=== PATIENT | female | born 1965 | race Caucasian/White ===

== ENCOUNTER 2021-01-12 09:13 | Emergency (ER) | payer BC, SELFPAY ==
[2021-01-12 09:22] VITALS: BP 113/74; PULSE 87; RESP 16; TEMP 36.9; O2SAT 99
--- NOTE | 2021-01-12 09:44 | ED.URI ---
HPI - URI/Sore Throat General Chief Complaint: Upper Respiratory Infection Stated Complaint: Sore Throat, Coughing Time Seen by Provider: 01/12/21 09:46 Source: patient Mode of arrival: ambulatory Limitations: no limitations History of Present Illness HPI Narrative: Char Pimentel is a 55 yo female with a PMH of high cholesterol, urinary retention, who comes here with c/o sore throat, subjective fever x 2 days. Also c/o back pain, no painful urination, she also states that her ears are painful for the last 2 to 3 days Related Data Allergies Allergy/AdvReac Type Severity Reaction Status Date / Time Penicillins Allergy Unknown A CHILD Verified 10/07/12 10:33 Review of Systems Review of Systems: Narrative: CONSTITUTIONAL: Subjective fever, chills, sweats. EYES: Denies visual changes, redness, discharge. ENT: Denies rhinorrhea, congestion, has sore throat, right otalgia. CARDIOVASCULAR: Denies chest pain, palpitations, edema. RESPIRATORY: Denies dyspnea, wheezing, cough GASTROINTESTINAL: Denies abdominal pain, nausea, vomiting, diarrhea. GENITOURINARY: Denies dysuria, hematuria, abnormal discharge SKIN: Denies rash or itching. NEUROLOGIC: Denies numbness, or focal weakness. PSYCHIATRIC: Denies anxiety or depression. [facility] Past Medical History Medical History (Updated 01/12/21 @ 10:06 by Soha Lehman CNP) High cholesterol Low testosterone Urinary retention Family History Family History (Updated 01/12/21 @ 10:00 by Soha Lehman CNP) Other Heart disease Hypertension Social History Social History (Updated 01/12/21 @ 09:59 by Shoa Lehman CNP) Smoking status: Never smoker Alcohol intake: current Alcohol use details: daily drinker Gender identity (if verbalized by the patient): Female Comments At time of signature, I agree with nursing past medical, surgical, social and family history. There is no relevant family history pertinent to the presenting complaint. Exam Narrative: Exam Narrative: GENERAL: This is a well-nourished, well-developed patient, in mild distress. HEAD: normocephalic, atraumatic. EYES: Sclera clear/white. Vision is grossly intact. EARS: External ears normal, auditory canals right is erythematous and without drainage, TMs normal without perforation. Hearing grossly intact. NOSE: External nose normal without nasal discharge, nares without redness, no rhinorrhea. THROAT: Mucous membranes moist, posterior pharynx with a little erythema NECK: Neck supple, non-tender CARDIOVASCULAR: Regular rate and rhythm without murmurs, gallops, or rubs. RESPIRATORY: Clear to auscultation. Breath sounds equal bilaterally. No wheezes, rales, or rhonchi. GASTROINTESTINAL: Abdomen soft, non-tender, SKIN: warm, intact with no suspicious lesions or rash, good texture and turgor. NEURO: awake, alert, and oriented to person, place and time. There were no obvious focal neurologic abnormalities. Steady gait EXTREMITIES: Normal range of motion. BACK: Nontender without deformity Course Course Emergency Course: Patient comes in sore throat right ear pain and back pain denies urinary symptoms states his throat has been sore at 8 out of 10 and right ear pain x2 to 3 days Strep test negative Started on amoxicillin and encouraged to use Flonase in addition to her Zyrtec she already uses daily Vital Signs Vital signs: Vital Signs Temperature 98.4 F 01/12/21 09:22 Pulse Rate 87 01/12/21 09:22 Respiratory Rate 16 01/12/21 09:22 Blood Pressure 113/74 01/12/21 09:22 Pulse Oximetry 99 01/12/21 09:22 Temperature 98.4 F 01/12/21 09:22 Pulse Rate 87 01/12/21 09:22 Respiratory Rate 16 01/12/21 09:22 Blood Pressure 113/74 01/12/21 09:22 Pulse Oximetry 99 01/12/21 09:22 MDM - URI/Sore Throat Differential Diagnosis Differential diagnosis: Likely otitis media, pharyngitis and other Lab Data Labs: Strep Screen Presumptive Negative
== END 2021-01-12 10:12 | disposition home or self-care (01) ==
PROVIDERS: Emergency Provider Nurse Practitioner; PCP Internal Medicine
DX: H92.01 Otalgia, right ear (principal); J02.9 Acute pharyngitis, unspecified; E78.00 Pure hypercholesterolemia, unspecified
CPT/HCPCS: 87081; 87880; 99203; G0463